=== PATIENT | male | born 1950 | race African-American/Black ===

== ENCOUNTER 2017-07-27 07:45 | Inpatient (IN) | payer MEDICARE, OTHER ==
[2017-07-27] MEDS: SOD CHLORIDE 0.9% 1,000 ML IV (11:11)
[2017-07-27] MEDS: ONDANSETRON 4 MG INJ IV (11:11)
[2017-07-27 11:37] LABS: ADD MAN DIFF? NO
[2017-07-27 11:41] LABS: BASOPHIL # 0.1 10^3/ul (0.0-0.1); BASOPHILS % 0.9 % (0.0-2.0); EOSINOPHILS % 0.1 % (0.0-7.0); HEMATOCRIT 53.1 % (42.0-52.0); HEMOGLOBIN 17.7 g/dl (14.0-18.0); LYMPHOCYTES # 1.2 10^3/ul (0.8-2.9); LYMPHOCYTES % 15.1 % (15.0-51.0); MEAN CORPUSCULAR HEMOGLOBIN 33.7 pg (29.0-33.0); MEAN CORPUSCULAR HGB CONC 33.3 g/dl (32.0-37.0); MEAN PLATELET VOLUME 10.7 fl (7.4-10.4); MONOCYTE # 0.2 10^3/ul (0.3-0.9); NEUTROPHIL # 6.2 10^3/ul (1.6-7.5); NEUTROPHILS % 80.6 % (39.0-77.0); PLATELET COUNT 243 10^3/UL (140-415); RED BLOOD COUNT 5.26 10^6/ul (4.70-6.10); RED CELL DISTRIBUTION WIDTH 14.1 % (11.5-14.5)
[2017-07-27 11:41] LABS: WHITE BLOOD COUNT 7.7 10^3/ul (4.8-10.8)
[2017-07-27 12:01] LABS: ALANINE AMINOTRANSFERASE 29 IU/L (13-69); ALBUMIN 5.1 g/dl (3.3-4.9); ALBUMIN/GLOBULIN RATIO 1.37; ALKALINE PHOSPHATASE 70 IU/L (42-121); ANION GAP 19 (8-16); ASPARTATE AMINO TRANSFERASE 25 IU/L (15-46); BILIRUBIN,INDIRECT 0.1 mg/dl (0-1.1); BILIRUBIN,TOTAL 0.1 mg/dl (0.2-1.3); BLOOD UREA NITROGEN 19 mg/dl (7-20); CALCIUM 9.9 mg/dl (8.4-10.2); CARBON DIOXIDE 27 mmol/L (21-31); CHLORIDE 105 mmol/L (97-110); CREATININE 1.38 mg/dl (0.61-1.24); GLUCOSE 150 mg/dl (70-220); LIPASE 109 U/L (23-300); POTASSIUM 3.4 mmol/L (3.5-5.1); SODIUM 148 mmol/L (135-144); TOTAL PROTEIN 8.8 g/dl (6.1-8.1)
[2017-07-27 12:02] LABS: INR 0.91; PROTIME 12.3 Sec (11.9-14.9)
[2017-07-27 12:12] LABS: TROPONIN-I < 0.012 ng/ml (0.00-0.12)
[2017-07-27] MEDS ORDERED: NACL 0.9% 3 ML SYG IV (14:30)
[2017-07-27] MEDS ORDERED: ACETAMINOPHEN 325 MG TAB PO (14:30)
[2017-07-27] MEDS ORDERED: ONDANSETRON 4 MG INJ IV (14:30)
[2017-07-27] MEDS: AMLODIPINE 5 MG TAB PO (15:08)
[2017-07-27] MEDS: METOPROLOL (XL) 25 MG TAB PO (15:09)
[2017-07-27] MEDS: DEXTROSE 5%-0.45% NACL 1,000 ML IV (16:44)
[2017-07-27 16:53] LABS: ADD UMIC YES; UR ASCORBIC ACID NEGATIVE (NEGATIVE); UR BILIRUBIN (Dip) NEGATIVE (NEGATIVE); UR BLOOD (Dip) NEGATIVE (NEGATIVE); UR CLARITY CLEAR (CLEAR); UR COLOR YELLOW (YELLOW); UR GLUCOSE (Dip) NEGATIVE (NEGATIVE); UR KETONES (Dip) NEGATIVE (NEGATIVE); UR LEUKOCYTE ESTERASE (Dip) NEGATIVE Leu/ul (NEGATIVE); UR MUCUS MODERATE /HPF (NONE SEEN); UR NITRITE (Dip) NEGATIVE (NEGATIVE); UR RBC 2 /HPF (0-5); UR SPECIFIC GRAVITY (Dip) 1.023 (1.003-1.030); UR TOTAL PROTEIN (Dip) 2+ mg/dl (NEGATIVE); UR UROBILINOGEN (Dip) 1+ mg/dL (NEGATIVE); UR WBC 2 /HPF (0-5)
[2017-07-27] MEDS: traZODone 50 MG TAB PO (20:21)
[2017-07-27] MEDS: RANITIDINE 150 MG TAB PO (20:21)
[2017-07-27] MEDS: POTASSIUM CHLORIDE (SR) 20 MEQ TAB PO (21:45)
[2017-07-28] MEDS: DEXTROSE 5%-0.45% NACL 1,000 ML IV ×3 (03:32→19:53)
[2017-07-28 07:45] LABS: ADD MAN DIFF? NO
[2017-07-28 07:55] LABS: WHITE BLOOD COUNT 7.5 10^3/ul (4.8-10.8)
[2017-07-28 07:55] LABS: BASOPHIL # 0.1 10^3/ul (0.0-0.1); BASOPHILS % 0.8 % (0.0-2.0); EOSINOPHILS # 0.1 10^3/ul (0.0-0.5); EOSINOPHILS % 1.2 % (0.0-7.0); HEMATOCRIT 49.8 % (42.0-52.0); HEMOGLOBIN 16.9 g/dl (14.0-18.0); LYMPHOCYTES # 2.2 10^3/ul (0.8-2.9); LYMPHOCYTES % 28.9 % (15.0-51.0); MEAN CORPUSCULAR HEMOGLOBIN 34.3 pg (29.0-33.0); MEAN CORPUSCULAR HGB CONC 33.9 g/dl (32.0-37.0); MEAN CORPUSCULAR VOLUME 101.2 fl (82.0-101.0); MEAN PLATELET VOLUME 10.8 fl (7.4-10.4); MONOCYTE # 0.7 10^3/ul (0.3-0.9); MONOCYTES % 9.4 % (0.0-11.0); NEUTROPHIL # 4.4 10^3/ul (1.6-7.5); NEUTROPHILS % 59.3 % (39.0-77.0); PLATELET COUNT 220 10^3/UL (140-415); RED BLOOD COUNT 4.92 10^6/ul (4.70-6.10); RED CELL DISTRIBUTION WIDTH 14.2 % (11.5-14.5)
[2017-07-28 08:13] LABS: CHOLESTEROL 133 mg/dl (100-200)
[2017-07-28 08:13] LABS: CHOL/HDL RATIO 3.3 RATIO; HDL CHOLESTEROL 40 mg/dl (30-78); LDL CHOLESTEROL,CALCULATED 60 mg/dl; TRIGLYCERIDES 164 mg/dl (0-149)
[2017-07-28 08:17] LABS: ALANINE AMINOTRANSFERASE 26 IU/L (13-69); ALBUMIN 4.6 g/dl (3.3-4.9); ALBUMIN/GLOBULIN RATIO 1.39; ALKALINE PHOSPHATASE 60 IU/L (42-121); ANION GAP 18 (8-16); ASPARTATE AMINO TRANSFERASE 28 IU/L (15-46); BILIRUBIN,INDIRECT 0.4 mg/dl (0-1.1); BILIRUBIN,TOTAL 0.4 mg/dl (0.2-1.3); BLOOD UREA NITROGEN 20 mg/dl (7-20); CALCIUM 9.7 mg/dl (8.4-10.2); CARBON DIOXIDE 23 mmol/L (21-31); CHLORIDE 108 mmol/L (97-110); CREATININE 1.22 mg/dl (0.61-1.24); GLUCOSE 103 mg/dl (70-220); MAGNESIUM 2.1 mg/dl (1.7-2.5); POTASSIUM 4.1 mmol/L (3.5-5.1); SODIUM 145 mmol/L (135-144); TOTAL PROTEIN 7.9 g/dl (6.1-8.1)
[2017-07-28] MEDS: HYDROCHLOROTHIAZIDE 25 MG TAB PO (08:21)
[2017-07-28] MEDS: ASPIRIN 81 MG TAB PO (08:21)
[2017-07-28] MEDS: METOPROLOL (XL) 25 MG TAB PO (08:22)
[2017-07-28] MEDS: AMLODIPINE 5 MG TAB PO (08:22)
[2017-07-28] MEDS ORDERED: HYDROCHLOROTHIAZIDE 50 MG TAB PO (09:00)
[2017-07-28] MEDS ORDERED: MECLIZINE 12.5 MG TAB PO (10:00)
[2017-07-28] MEDS: AMLODIPINE 2.5 MG TAB PO (12:51)
[2017-07-28] MEDS: DOCUSATE SODIUM 100 MG CAP PO (19:56)
[2017-07-28] MEDS: traZODone 50 MG TAB PO (19:57)
[2017-07-28] MEDS: RANITIDINE 150 MG TAB PO (19:57)
[2017-07-28] MEDS: ATORVASTATIN 40 MG TAB PO (22:30)
[2017-07-29] MEDS: ASPIRIN 81 MG TAB PO (08:11)
[2017-07-29] MEDS: AMLODIPINE 10 MG TAB PO (08:12)
[2017-07-29] MEDS: HYDROCHLOROTHIAZIDE 25 MG TAB PO (08:12)
[2017-07-29] MEDS: METOPROLOL (XL) 25 MG TAB PO (08:13)
[2017-07-29] MEDS: DEXTROSE 5%-0.45% NACL 1,000 ML IV (14:44)
[2017-07-29] MEDS: LORAZEPAM 0.5 MG TAB PO (18:04)
[2017-07-29] MEDS: ATORVASTATIN 40 MG TAB PO (20:33)
[2017-07-29] MEDS: DOCUSATE SODIUM 100 MG CAP PO (20:34)
[2017-07-29] MEDS: LOSARTAN 50 MG TAB PO (20:34)
[2017-07-29] MEDS: RANITIDINE 150 MG TAB PO (20:34)
[2017-07-29] MEDS: traZODone 50 MG TAB PO (20:34)
[2017-07-29] MEDS: ZOLPIDEM 5 MG TAB PO (21:36)
[2017-07-30] MEDS: DEXTROSE 5%-0.45% NACL 1,000 ML IV (08:46)
[2017-07-30] MEDS: ASPIRIN 81 MG TAB PO (08:48)
[2017-07-30] MEDS: AMLODIPINE 10 MG TAB PO (08:49)
[2017-07-30] MEDS: METOPROLOL (XL) 25 MG TAB PO (08:50)
[2017-07-30] MEDS: HYDROCHLOROTHIAZIDE 25 MG TAB PO (08:50)
== END 2017-07-30 15:55 | disposition home or self-care (01) | DRG 64 ==
LOC: E/R 07:45 → TEL 12:41
DX: I63.9 Cerebral infarction, unspecified (principal); B20 Human immunodeficiency virus [HIV] disease; I10 Essential (primary) hypertension; E78.5 Hyperlipidemia, unspecified; H81.10 Benign paroxysmal vertigo, unspecified ear; R26.0 Ataxic gait; Z79.82 Long term (current) use of aspirin; Z87.891 Personal history of nicotine dependence
CPT/HCPCS: 36415; 70450; 70551; 71045; 80053; 80061; 81001; 83690; 83735; 84484; 85025; 85610; 93005; 93306; 96374; 97161; 99285-25; G0378

== ENCOUNTER 2018-09-29 08:16 | Inpatient (IN) | payer MEDICARE, OTHER ==
[2018-09-29 08:45] LABS: ADD MAN DIFF? NO
[2018-09-29 08:47] LABS: WHITE BLOOD COUNT 7.5 10^3/ul (4.8-10.8)
[2018-09-29 08:47] LABS: BASOPHIL # 0.1 10^3/ul (0.0-0.1); BASOPHILS % 0.8 % (0.0-2.0); EOSINOPHILS # 0.2 10^3/ul (0.0-0.5); EOSINOPHILS % 2.3 % (0.0-7.0); HEMATOCRIT 52.5 % (42.0-52.0); HEMOGLOBIN 17.5 g/dl (14.0-18.0); MEAN CORPUSCULAR HGB CONC 33.3 g/dl (32.0-37.0); MEAN CORPUSCULAR VOLUME 101.9 fl (82.0-101.0); MEAN PLATELET VOLUME 10.5 fl (7.4-10.4); MONOCYTE # 0.6 10^3/ul (0.3-0.9); MONOCYTES % 8.4 % (0.0-11.0); NEUTROPHIL # 4.6 10^3/ul (1.6-7.5); NEUTROPHILS % 61.2 % (39.0-77.0); NUCLEATED RED BLOOD CELLS% 0.3 /100WBC (0.0-0.0); PLATELET COUNT 226 10^3/UL (140-415); RED BLOOD COUNT 5.15 10^6/ul (4.70-6.10); RED CELL DISTRIBUTION WIDTH 13.7 % (11.5-14.5)
[2018-09-29 08:55] LABS: HEMOGLOBIN A1C 5.5 % (0-5.9)
[2018-09-29] MEDS: SOD CHLORIDE 0.9% 100 ML (08:58)
[2018-09-29] MEDS: IODIXANOL LOCM 100 ML BTL (08:59)
[2018-09-29 09:04] LABS: ALANINE AMINOTRANSFERASE 21 IU/L (13-69); ALBUMIN 4.3 g/dl (3.3-4.9); ALKALINE PHOSPHATASE 72 IU/L (42-121); ANION GAP 9 (5-13); ASPARTATE AMINO TRANSFERASE 30 IU/L (15-46); BILIRUBIN,INDIRECT 0.8 mg/dl (0-1.1); BILIRUBIN,TOTAL 0.8 mg/dl (0.2-1.3); BLOOD UREA NITROGEN 22 mg/dl (7-20); CALCIUM 9.5 mg/dl (8.4-10.2); CARBON DIOXIDE 27 mmol/L (21-31); CHLORIDE 107 mmol/L (97-110); CHOL/HDL RATIO 3.3 RATIO; CHOLESTEROL 133 mg/dl (100-200); CREATINE KINASE 436 IU/L (23-200); CREATININE 1.34 mg/dl (0.61-1.24); Estimated GFR > 60 mL/min (>60); GLUCOSE 124 mg/dl (70-220); HDL CHOLESTEROL 40 mg/dl (31-75); LDL CHOLESTEROL,CALCULATED 65 mg/dl; POTASSIUM 3.3 mmol/L (3.5-5.1); SODIUM 143 mmol/L (135-144); TOTAL PROTEIN 8.2 g/dl (6.1-8.1); TRIGLYCERIDES 138 mg/dl (0-149)
[2018-09-29 09:06] LABS: INR 0.88; PT RATIO 0.9
[2018-09-29 09:07] LABS: PARTIAL THROMBOPLASTIN TIME 30.1 Sec (23.0-35.0)
[2018-09-29 09:12] LABS: CK INDEX 0.7
[2018-09-29] MEDS: ASPIRIN 325 MG TAB PO (09:13)
[2018-09-29 09:15] LABS: CK-MB 2.87 ng/ml (0.0-2.4)
[2018-09-29 09:22] LABS: ETHANOL < 10.0 mg/dl (0-0)
[2018-09-29] MEDS ORDERED: ONDANSETRON 4 MG INJ IV (09:30)
[2018-09-29] MEDS ORDERED: ACETAMINOPHEN 325 MG TAB PO (09:30)
[2018-09-29] MEDS: CLOPIDOGREL 75 MG TAB PO (09:43)
[2018-09-29] MEDS: RANITIDINE 150 MG TAB PO (20:03)
[2018-09-29] MEDS: ATORVASTATIN 40 MG TAB PO (20:03)
[2018-09-29] MEDS: traZODone 50 MG TAB PO (20:03)
[2018-09-29] MEDS: POTASSIUM CHLORIDE (SR) 10 MEQ TAB PO (21:57)
[2018-09-30] MEDS: PANTOPRAZOLE (EC) 40 MG TAB PO (05:47)
[2018-09-30 06:32] LABS: ADD MAN DIFF? NO
[2018-09-30 06:33] LABS: BASOPHIL # 0.1 10^3/ul (0.0-0.1); BASOPHILS % 0.7 % (0.0-2.0); EOSINOPHILS # 0.2 10^3/ul (0.0-0.5); EOSINOPHILS % 2.8 % (0.0-7.0); HEMATOCRIT 47.8 % (42.0-52.0); LYMPHOCYTES # 1.8 10^3/ul (0.8-2.9); LYMPHOCYTES % 24.5 % (15.0-51.0); MEAN CORPUSCULAR HEMOGLOBIN 34.2 pg (29.0-33.0); MEAN CORPUSCULAR HGB CONC 33.5 g/dl (32.0-37.0); MEAN CORPUSCULAR VOLUME 102.1 fl (82.0-101.0); MEAN PLATELET VOLUME 10.9 fl (7.4-10.4); MONOCYTE # 0.8 10^3/ul (0.3-0.9); MONOCYTES % 10.4 % (0.0-11.0); NEUTROPHIL # 4.5 10^3/ul (1.6-7.5); NEUTROPHILS % 61.3 % (39.0-77.0); PLATELET COUNT 219 10^3/UL (140-415); RED BLOOD COUNT 4.68 10^6/ul (4.70-6.10); RED CELL DISTRIBUTION WIDTH 13.7 % (11.5-14.5)
[2018-09-30 06:33] LABS: WHITE BLOOD COUNT 7.4 10^3/ul (4.8-10.8)
[2018-09-30 06:59] LABS: ALANINE AMINOTRANSFERASE 20 IU/L (13-69); ALBUMIN 3.8 g/dl (3.3-4.9); ALBUMIN/GLOBULIN RATIO 1.05; ALKALINE PHOSPHATASE 68 IU/L (42-121); ANION GAP 7 (5-13); ASPARTATE AMINO TRANSFERASE 25 IU/L (15-46); BILIRUBIN,INDIRECT 0.8 mg/dl (0-1.1); BILIRUBIN,TOTAL 0.8 mg/dl (0.2-1.3); BLOOD UREA NITROGEN 21 mg/dl (7-20); CALCIUM 9.2 mg/dl (8.4-10.2); CARBON DIOXIDE 27 mmol/L (21-31); CHLORIDE 107 mmol/L (97-110); CHOL/HDL RATIO 3.3 RATIO; CHOLESTEROL 115 mg/dl (100-200); CREATININE 1.29 mg/dl (0.61-1.24); Estimated GFR > 60 mL/min (>60); GLUCOSE 109 mg/dl (70-220); HDL CHOLESTEROL 34 mg/dl (31-75); LDL CHOLESTEROL,CALCULATED 54 mg/dl; MAGNESIUM 2.2 mg/dl (1.7-2.5); POTASSIUM 3.4 mmol/L (3.5-5.1); SODIUM 141 mmol/L (135-144); TOTAL PROTEIN 7.4 g/dl (6.1-8.1); TRIGLYCERIDES 135 mg/dl (0-149)
[2018-09-30 07:16] LABS: ADD UMIC YES; UR ASCORBIC ACID NEGATIVE (NEGATIVE); UR BILIRUBIN (Dip) NEGATIVE (NEGATIVE); UR BLOOD (Dip) NEGATIVE (NEGATIVE); UR CLARITY CLEAR (CLEAR); UR COLOR YELLOW (YELLOW); UR GLUCOSE (Dip) NEGATIVE (NEGATIVE); UR KETONES (Dip) NEGATIVE (NEGATIVE); UR LEUKOCYTE ESTERASE (Dip) NEGATIVE Leu/ul (NEGATIVE); UR NITRITE (Dip) NEGATIVE (NEGATIVE); UR RBC 1 /HPF (0-5); UR SPECIFIC GRAVITY (Dip) 1.033 (1.003-1.030); UR TOTAL PROTEIN (Dip) 2+ mg/dl (NEGATIVE); UR UROBILINOGEN (Dip) 2+ mg/dL (NEGATIVE); UR WBC 1 /HPF (0-5)
[2018-09-30 08:09] LABS: AMPHETAMINE/METHAMPHETAMINE Negative (NEGATIVE); BARBITURATES Negative (NEGATIVE); BENZODIAZEPINES Negative (NEGATIVE); CANNABINOIDS Negative (NEGATIVE); COCAINE Negative (NEGATIVE); OPIATES Negative (NEGATIVE)
[2018-09-30] MEDS ORDERED: HYDROCHLOROTHIAZIDE 50 MG TAB PO (09:00)
[2018-09-30] MEDS: CLOPIDOGREL 75 MG TAB PO (10:34)
[2018-09-30] MEDS: ASPIRIN (EC) 325 MG TAB PO (10:35)
[2018-09-30] MEDS: ALLOPURINOL 300 MG TAB PO (10:35)
[2018-09-30] MEDS: HYDROCHLOROTHIAZIDE 25 MG TAB PO (10:36)
[2018-09-30] MEDS: AMLODIPINE 10 MG TAB PO (10:36)
[2018-09-30] MEDS: METOPROLOL (XL) 25 MG TAB PO (10:36)
[2018-09-30] MEDS: POTASSIUM CHLORIDE (SR) 20 MEQ TAB PO (11:40)
[2018-09-30] MEDS ORDERED: METOCLOPRAMIDE 10 MG INJ IV (12:00)
[2018-09-30] MEDS: traZODone 50 MG TAB PO (20:12)
[2018-09-30] MEDS: ATORVASTATIN 40 MG TAB PO (20:12)
[2018-09-30] MEDS: RANITIDINE 150 MG TAB PO (20:12)
[2018-09-30] MEDS ORDERED: ABACAVIR 300 MG TAB PO (21:00)
[2018-09-30] MEDS ORDERED: LAMIVUDINE 300 MG PO (21:00)
[2018-10-01] MEDS: ABACAVIR/LAMIVUDINE TAB PO ×2 (00:05→08:40)
[2018-10-01] MEDS: DOLUTEGRAVIR SODIUM 50 MG TABLET PO ×2 (00:05→08:40)
[2018-10-01] MEDS: PANTOPRAZOLE (EC) 40 MG TAB PO (05:21)
[2018-10-01 06:25] LABS: ADD MAN DIFF? NO
[2018-10-01 06:33] LABS: BASOPHIL # 0.1 10^3/ul (0.0-0.1); BASOPHILS % 0.8 % (0.0-2.0); EOSINOPHILS # 0.2 10^3/ul (0.0-0.5); EOSINOPHILS % 2.3 % (0.0-7.0); HEMATOCRIT 46.7 % (42.0-52.0); HEMOGLOBIN 15.8 g/dl (14.0-18.0); LYMPHOCYTES # 1.8 10^3/ul (0.8-2.9); LYMPHOCYTES % 24.8 % (15.0-51.0); MEAN CORPUSCULAR HEMOGLOBIN 34.6 pg (29.0-33.0); MEAN CORPUSCULAR HGB CONC 33.8 g/dl (32.0-37.0); MEAN CORPUSCULAR VOLUME 102.2 fl (82.0-101.0); MEAN PLATELET VOLUME 10.4 fl (7.4-10.4); MONOCYTE # 0.8 10^3/ul (0.3-0.9); MONOCYTES % 10.9 % (0.0-11.0); NEUTROPHIL # 4.3 10^3/ul (1.6-7.5); NEUTROPHILS % 61.1 % (39.0-77.0); PLATELET COUNT 218 10^3/UL (140-415); RED BLOOD COUNT 4.57 10^6/ul (4.70-6.10); RED CELL DISTRIBUTION WIDTH 13.3 % (11.5-14.5)
[2018-10-01 06:33] LABS: WHITE BLOOD COUNT 7.1 10^3/ul (4.8-10.8)
[2018-10-01 07:17] LABS: ANION GAP 8 (5-13); BLOOD UREA NITROGEN 17 mg/dl (7-20); CALCIUM 9.1 mg/dl (8.4-10.2); CARBON DIOXIDE 24 mmol/L (21-31); CHLORIDE 105 mmol/L (97-110); CREATININE 1.17 mg/dl (0.61-1.24); Estimated GFR > 60 mL/min (>60); GLUCOSE 115 mg/dl (70-220); MAGNESIUM 2.1 mg/dl (1.7-2.5); POTASSIUM 3.4 mmol/L (3.5-5.1); SODIUM 137 mmol/L (135-144)
[2018-10-01] MEDS: METOPROLOL (XL) 25 MG TAB PO (08:40)
[2018-10-01] MEDS: ASPIRIN (EC) 325 MG TAB PO (08:41)
[2018-10-01] MEDS: ALLOPURINOL 300 MG TAB PO (08:41)
[2018-10-01] MEDS: CLOPIDOGREL 75 MG TAB PO (08:41)
[2018-10-01] MEDS: POTASSIUM CHLORIDE (SR) 20 MEQ TAB PO (08:41)
[2018-10-01] MEDS: HYDROCHLOROTHIAZIDE 25 MG TAB PO (08:42)
[2018-10-01] MEDS: AMLODIPINE 10 MG TAB PO (08:42)
[2018-10-01] MEDS: ATORVASTATIN 40 MG TAB PO (20:26)
[2018-10-01] MEDS: traZODone 50 MG TAB PO (20:26)
[2018-10-01] MEDS: RANITIDINE 150 MG TAB PO (20:26)
[2018-10-02] MEDS: PANTOPRAZOLE (EC) 40 MG TAB PO (06:16)
[2018-10-02 06:52] LABS: ADD MAN DIFF? NO
[2018-10-02 07:00] LABS: WHITE BLOOD COUNT 7.2 10^3/ul (4.8-10.8)
[2018-10-02 07:00] LABS: BASOPHILS % 0.6 % (0.0-2.0); EOSINOPHILS # 0.2 10^3/ul (0.0-0.5); EOSINOPHILS % 2.5 % (0.0-7.0); HEMATOCRIT 49.7 % (42.0-52.0); HEMOGLOBIN 16.7 g/dl (14.0-18.0); LYMPHOCYTES # 1.9 10^3/ul (0.8-2.9); LYMPHOCYTES % 26.4 % (15.0-51.0); MEAN CORPUSCULAR HGB CONC 33.6 g/dl (32.0-37.0); MEAN CORPUSCULAR VOLUME 101.2 fl (82.0-101.0); MEAN PLATELET VOLUME 10.6 fl (7.4-10.4); MONOCYTE # 0.7 10^3/ul (0.3-0.9); MONOCYTES % 9.7 % (0.0-11.0); NEUTROPHIL # 4.4 10^3/ul (1.6-7.5); NEUTROPHILS % 60.5 % (39.0-77.0); PLATELET COUNT 225 10^3/UL (140-415); RED BLOOD COUNT 4.91 10^6/ul (4.70-6.10); RED CELL DISTRIBUTION WIDTH 13.2 % (11.5-14.5)
[2018-10-02 07:18] LABS: ANION GAP 7 (5-13); BLOOD UREA NITROGEN 19 mg/dl (7-20); CALCIUM 9.7 mg/dl (8.4-10.2); CARBON DIOXIDE 27 mmol/L (21-31); CHLORIDE 102 mmol/L (97-110); CREATININE 1.34 mg/dl (0.61-1.24); Estimated GFR > 60 mL/min (>60); GLUCOSE 104 mg/dl (70-220); MAGNESIUM 2.2 mg/dl (1.7-2.5); POTASSIUM 3.7 mmol/L (3.5-5.1); SODIUM 136 mmol/L (135-144)
[2018-10-02] MEDS: CLOPIDOGREL 75 MG TAB PO (08:45)
[2018-10-02] MEDS: ASPIRIN (EC) 325 MG TAB PO (08:45)
[2018-10-02] MEDS: METOPROLOL (XL) 25 MG TAB PO (08:46)
[2018-10-02] MEDS: ALLOPURINOL 300 MG TAB PO (08:46)
[2018-10-02] MEDS: AMLODIPINE 10 MG TAB PO (08:46)
[2018-10-02] MEDS: HYDROCHLOROTHIAZIDE 25 MG TAB PO (08:47)
[2018-10-02] MEDS: ABACAVIR/LAMIVUDINE TAB PO (11:25)
[2018-10-02] MEDS: DOLUTEGRAVIR SODIUM 50 MG TABLET PO (11:25)
[2018-10-02] MEDS: POTASSIUM CHLORIDE (SR) 20 MEQ TAB PO (14:37)
[2018-10-02] MEDS: ATORVASTATIN 40 MG TAB PO (20:25)
[2018-10-02] MEDS: traZODone 50 MG TAB PO (20:25)
[2018-10-02] MEDS: RANITIDINE 150 MG TAB PO (20:26)
[2018-10-03] MEDS: PANTOPRAZOLE (EC) 40 MG TAB PO (05:47)
[2018-10-03 06:27] LABS: ADD MAN DIFF? NO
[2018-10-03 06:30] LABS: WHITE BLOOD COUNT 6.7 10^3/ul (4.8-10.8)
[2018-10-03 06:30] LABS: BASOPHIL # 0.1 10^3/ul (0.0-0.1); BASOPHILS % 0.9 % (0.0-2.0); EOSINOPHILS # 0.2 10^3/ul (0.0-0.5); EOSINOPHILS % 2.5 % (0.0-7.0); HEMATOCRIT 49.8 % (42.0-52.0); HEMOGLOBIN 16.9 g/dl (14.0-18.0); LYMPHOCYTES # 1.9 10^3/ul (0.8-2.9); LYMPHOCYTES % 29.1 % (15.0-51.0); MEAN CORPUSCULAR HEMOGLOBIN 34.1 pg (29.0-33.0); MEAN CORPUSCULAR HGB CONC 33.9 g/dl (32.0-37.0); MEAN CORPUSCULAR VOLUME 100.6 fl (82.0-101.0); MEAN PLATELET VOLUME 10.4 fl (7.4-10.4); MONOCYTE # 0.7 10^3/ul (0.3-0.9); MONOCYTES % 10.2 % (0.0-11.0); NEUTROPHIL # 3.8 10^3/ul (1.6-7.5); NEUTROPHILS % 56.9 % (39.0-77.0); PLATELET COUNT 239 10^3/UL (140-415); RED BLOOD COUNT 4.95 10^6/ul (4.70-6.10); RED CELL DISTRIBUTION WIDTH 13.1 % (11.5-14.5)
[2018-10-03 07:15] LABS: ANION GAP 10 (5-13); BLOOD UREA NITROGEN 19 mg/dl (7-20); CALCIUM 9.7 mg/dl (8.4-10.2); CARBON DIOXIDE 25 mmol/L (21-31); CHLORIDE 101 mmol/L (97-110); CREATININE 1.29 mg/dl (0.61-1.24); Estimated GFR > 60 mL/min (>60); GLUCOSE 108 mg/dl (70-220); MAGNESIUM 2.1 mg/dl (1.7-2.5); POTASSIUM 3.7 mmol/L (3.5-5.1); SODIUM 136 mmol/L (135-144)
[2018-10-03] MEDS: ASPIRIN (EC) 325 MG TAB PO (08:01)
[2018-10-03] MEDS: CLOPIDOGREL 75 MG TAB PO (08:01)
[2018-10-03] MEDS: METOPROLOL (XL) 25 MG TAB PO (08:02)
[2018-10-03] MEDS: AMLODIPINE 10 MG TAB PO (08:02)
[2018-10-03] MEDS: DOLUTEGRAVIR SODIUM 50 MG TABLET PO (08:02)
[2018-10-03] MEDS: ALLOPURINOL 300 MG TAB PO (08:03)
[2018-10-03] MEDS: HYDROCHLOROTHIAZIDE 25 MG TAB PO (08:04)
[2018-10-03] MEDS: ABACAVIR/LAMIVUDINE TAB PO (08:12)
== END 2018-10-03 12:30 | disposition home or self-care (01) | DRG 66 ==
LOC: E/R 08:16 → TEL 09:25
DX: I63.9 Cerebral infarction, unspecified (principal); I10 Essential (primary) hypertension; E78.5 Hyperlipidemia, unspecified; H53.2 Diplopia; R27.0 Ataxia, unspecified; E87.6 Hypokalemia; Z88.2 Allergy status to sulfonamides; M10.9 Gout, unspecified; Z79.82 Long term (current) use of aspirin; Z79.02 Long term (current) use of antithrombotics/antiplatelets
CPT/HCPCS: 36415; 70450; 70496; 70498; 70551; 71045; 80048; 80053; 80061; 80307; 81001; 82550; 82553; 83036; 83735; 84484; 85025; 85610; 85730; 92610; 93005; 93306; 97161; 97166; 99285-25